=== PATIENT | female | born 1980 | race Caucasian/White ===

== ENCOUNTER → 2024-04-04 12:04 | Outpatient (REF) | payer MEDICARE, SELFPAY | LOC: WDC 12:04 | PROVIDERS: ATTENDING PHYSICIAN Obstetrics & Gynecology; FAMILY PHYSICIAN Family Medicine | DX: Z12.31 Encounter for screening mammogram for malignant neoplasm of breast (principal) | CPT/HCPCS: 77063; 77067 ==

== ENCOUNTER → 2024-08-20 09:45 | Outpatient (REF) | payer MEDICARE, SELFPAY | LOC: MRI 3T 09:45 | PROVIDERS: ATTENDING PHYSICIAN Electrodiagnostic Medicine; FAMILY PHYSICIAN Family Medicine | DX: G35 Multiple sclerosis (principal) | CPT/HCPCS: 72157; A9575 ==

== ENCOUNTER → 2024-08-23 17:29 | Outpatient (REF) | payer MEDICARE, SELFPAY | LOC: MRI 17:29 | PROVIDERS: ATTENDING PHYSICIAN Electrodiagnostic Medicine; FAMILY PHYSICIAN Family Medicine | DX: G35 Multiple sclerosis (principal) | CPT/HCPCS: 70553; A9575 ==

== ENCOUNTER → 2025-02-07 07:28 | Outpatient (REF) | payer OTHER, SELFPAY | LOC: RAD 07:28 | PROVIDERS: ATTENDING PHYSICIAN Urology; FAMILY PHYSICIAN Family Medicine | DX: N31.9 Neuromuscular dysfunction of bladder, unspecified (principal); R33.9 Retention of urine, unspecified; N39.0 Urinary tract infection, site not specified | CPT/HCPCS: 76770 ==

== ENCOUNTER → 2025-04-09 13:19 | Outpatient (REF) | payer OTHER, SELFPAY | LOC: WDC 13:19 | PROVIDERS: ATTENDING PHYSICIAN Specialist; FAMILY PHYSICIAN Family Medicine | DX: Z12.31 Encounter for screening mammogram for malignant neoplasm of breast (principal) | CPT/HCPCS: 77063; 77067 ==

== ENCOUNTER 2025-07-17 17:12 | Emergency (ER) | payer OTHER, SELFPAY ==
[2025-07-17 17:14] VITALS: BP 115/86
[2025-07-17 17:40] LABS: Hematocrit 34.3 % (37.0-47.0); Hemoglobin 11.6 g/dL (12.0-16.0); Mean Corp Hgb Conc. 33.8 g/dL (33.0-37.0); Mean Corpuscular Volume 94.0 fL (81.0-99.0); Nucleated Red Blood Cells % 0 %; Platelet Count 251 10^3/uL (130-400); Red Cell Dist. Width 13.5 % (11.5-14.5)
[2025-07-17 17:50] LABS: HCG, Serum Qualitative Screen Negative
[2025-07-17 17:56] LABS: ALT (SGPT) 39 U/L (0-35); AST (SGOT) 38 U/L (14-36); Albumin 4.4 g/dl (3.5-5.0); Alkaline Phosphatase 81 U/L (38-126); Blood Urea Nitrogen 12 mg/dl (7-17); Calcium 9.2 mg/dl (8.4-10.2); Carbon Dioxide 26 mmol/L (22-30); Chloride 104 mmol/L (98-107); Glucose 105 mg/dl (70-99); Lipase 71 U/L (23-300); Potassium 4.1 mmol/L (3.5-5.1); Sodium 135 mmol/L (135-145)
[2025-07-17 18:06] LABS: Total Protein 7.0 g/dl (6.3-8.2); eGFR > 60.00
[2025-07-17 19:03] VITALS: BP 122/75
[2025-07-17 19:07] VITALS: BMI 18.6
[2025-07-17 20:00] VITALS: BP 127/79
--- NOTE | 2025-07-17 21:59 | ED.GENMED ---
History of Present Illness
General
Chief Complaint: Bowel Problem
Source: patient
Exam Limitations: none
Time Seen by Provider: 07/17/25 18:51
Nursing documentation reviewed up to this point in time: agreed with
History of Present Illness
History of Present Illness:
Patient to the emergency department with complaint of constipation. States she has not moved her bowels in 8 to 9 days. She reports using MiraLAX senna and enemas without improvement. She denies any abdominal pain nausea or vomiting. To ED
accompanied by family for evaluation.
Past History
Past History
ED Past Medical History: Psychiatric (Anxiety), Other (Multiple sclerosis), Other (Difficulty with balance, memory loss, poor cognition) and Other (UTI)
ED Past Surgical History: Other (Cystoscopy, stem cell transplant)
Social History
Tobacco: Non-smoker
Alcohol: None
Drug: None
Living: with family
Employment: Employed
Review of Systems
Review of Systems
Allergies reviewed?: Yes
All Other Systems: ROS reviewed and negative except as documented in HPI and ROS
Constitutional: Reports no symptoms
EENT: Reports no symptoms
Respiratory: Reports no symptoms
Cardiac: Reports no symptoms
ABD/GI: Reports constipated
: Reports no symptoms
Musculoskeletal: Reports no symptoms
Skin: Reports no symptoms
Neurological: Reports no symptoms
Psychiatric: Reports no symptoms
Phy Exam
General Physical Exam
General Presentation: well appearing and no apparent distress
General age: appears stated age
General Skin: warm and dry
General Habitus: normal
General Mental: alert
Cardiovascular Exam
Cardiovascular Exam: regular rate/rhythm and no edema
Gastrointestinal Exam
Gastrointestinal Exam: normal bowel sounds, non tender, soft, no organomegaly, no pulsatile mass and non distended
Rectal Exam: normal external exam, normal sphincter tone and no stool
Musculoskeletal Exam
Musculoskeletal Exam: full ROM and neuro vasc intact
Skin Exam
Skin Exam: normal color, warm/dry and no rash
Psychiatric Exam
Psychiatric Exam: normal mood/affect
Course
Orders/Labs/Results
Orders:
Orders
07/17/25 17:19
Test Result ONCE
07/17/25 17:23
Complete Blood Count/With Diff Urgent
Comprehensive Metabolic Panel Urgent
HCG, Serum Qualitative Screen Urgent
Comment: Notify provider if positive test present
Lipase Urgent
07/17/25 19:32
Abdomen Xray - 1 View [CR Abdomen - 1 View] Urgent
Comment:
Reason For Exam: constipation
Abnormal Lab Results
07/17/25
17:23
WBC 3.5 L 10^3/uL
(4.8-10.8)
RBC 3.65 L 10^6/uL
(4.20-5.40)
Hgb 11.6 L g/dL
(12.0-16.0)
Hct 34.3 L %
(37.0-47.0)
MCH 31.8 H pg
(27.0-31.0)
Absolute Lymphs (auto) 0.8 L 10^3/uL
(1.2-3.4)
Monocytes % 13.9 H %
(1.7-9.3)
Glucose 105 H mg/dl
(70-99)
AST 38 H U/L
(14-36)
ALT 39 H U/L
(0-35)
07/17/25 17:23
07/17/25 17:23
Vital Signs
Initial and Last Documented VS:
Initial Vital Signs
Temp Pulse Resp BP Pulse Ox
98.6 F 65 16 115/86 100
07/17/25 17:14 07/17/25 17:14 07/17/25 17:14 07/17/25 17:14 07/17/25 17:14
Last Documented Vital Signs
Temp Pulse Resp BP Pulse Ox
98.3 F 61 20 127/79 100
07/17/25 20:00 07/17/25 20:00 07/17/25 20:00 07/17/25 20:00 07/17/25 20:00
*Radiology
Radiology exam reviewed: radiology read reviewed
*Pulse Oximetry
SaO2: 100
Oxygen Mode of Delivery: Room air
Patient hypoxic: no
*Critical Care Note
Total Time (30-74mins, 75-104mins- exclusive of procedures): Not Applicable
Update Note
Update Note:
Patient to the emergency department with complaint of constipation, no stools for 8 to 9 days. On exam abdomen is soft nontender nondistended. Normal bowel sounds throughout. Rectal exam completed no stool in rectum. X-ray of abdomen completed
no evidence of obstruction. No further questioning patient admits to having some liquid stool yesterday. I discussed her x-ray findings and exam findings with her. Mild amount of stool seen on x-ray. Recommend increasing fluid intake and fiber
in diet. Discussed with her the use of stool softener such as Colace daily. She can add MiraLAX every 2 to 3 days if no stool. She does have a GI doctor that she follows with my encouraged her to follow-up in office. She was given instructions
on signs and symptoms return to emergency department and she is agreeable to plan
ED Attending Note
-
Portions of this chart may have been created with voice recognition software.� Occasional wrong word or��sound alike� substitutions may have occurred due to the inherent limitations of voice recognition software.
Discharge Plan
Departure
Patient Disposition: Home (Routine Discharge)
Date of Disposition: 07/17/25
Time of Disposition: 21:21
Patient with high blood pressure during this ER visit?: No
Condition: Good
Discharge Problem:
Constipation
Instructions: Constipation, Adult (DC), High-fiber diet
Prescriptions:
No Action
baclofen 10 MG tablet
10 mg PO QID
Escitalopram Oxalate
10 mg PO DAILY
Junel
1 tab PO DAILY
calcium carbonate [Calcium 600] 600 mg calcium (1,500 mg) Tablet
600 mg PO BID
diazepam 2 mg Tablet
2 mg PO HS
cholecalciferol (vitamin D3) [Vitamin D3] 10 mcg (400 unit) Tablet
10 mcg PO DAILY
dextroamphetamine-amphetamine [Adderall] 5 mg Tablet
5 mg PO DAILY
docusate calcium 50 mg Capsule
50 mg PO PRN PRN (Reason: soften stool)
nitrofurantoin 50 mg Capsule
50 mg PO QMWF
clindamycin HCl 300 MG capsule
1 cap PO QMWF
Rx Instructions:
three times a week
Referrals:
Suleiman Guzmán DO [Family Provider, Family Practice]
Activity Restrictions/Additional Instructions:
Follow-up with your family doctor. As we discussed take Colace daily. Increase your fluid intake. Maintain a diet high in fiber. Use MiraLAX once or twice a day if no stool in 3 days. Return to the emergency department immediately for fever
chills, abdominal pain, vomiting, or for any further concerns
Interventions
Interventions:
*Risk Screen - Suicide Last Done: 07/17/25 17:14
*General Assessment Last Done: 07/17/25 17:14
*Neglect/Abuse Screening Last Done: 07/17/25 17:14
*ED- Fall Risk Assessment Last Done: 07/17/25 19:05
*ED COVID-19 Vaccine History Last Done: 07/17/25 19:05
*ED Influenza Vaccine History Last Done: 07/17/25 19:05
*Nursing Disposition Last Done: 07/17/25 21:51
UX-Ocjul[facility]-Vieiqxedjf Assessment Last Done: 07/17/25 20:29
Discharge Date and Time
Discharge Date/Time: 07/17/25 21:53
Print Language: BAHAMIAN
== END 2025-07-17 21:53 | disposition home or self-care (01) ==
LOC: EMR 17:12
PROVIDERS: EMERGENCY PHYSICIAN Student in an Organized Health Care Education/Training Program; FAMILY PHYSICIAN Family Medicine
DX: K59.00 Constipation, unspecified (principal); G35 Multiple sclerosis
CPT/HCPCS: 99284; 74018; 80053; 83690; 84703; 85025